=== PATIENT | female | born 1960 | race Caucasian/White ===

== ENCOUNTER 2021-03-24 15:52 | Observation (INO) ==
[2021-03-24] MEDS ORDERED: Naloxone 0.4 MG/ML INJ IVP PRN (21:54)
[2021-03-24] MEDS ORDERED: Melatonin 3 MG TABLET PO PRN (21:54)
[2021-03-24] MEDS ORDERED: Diphenoxylate/Atropine 1 TAB TABLET PO PRN (22:16)
[2021-03-24] MEDS ORDERED: Ondansetron ODT 4 MG TAB.RAPDIS SL PRN (22:16)
[2021-03-24] MEDS ORDERED: ALPRAZolam 0.5 MG TABLET PO PRN (22:16)
[2021-03-24] MEDS ORDERED: *HR* OxyCODONE/APAP 10/325 TABLET PO PRN (22:16)
[2021-03-24] MEDS: Pregabalin 50 MG CAPSULE PO SCH (23:33)
[2021-03-24] MEDS: Apixaban 2.5 MG TABLET PO SCH (23:33)
[2021-03-25 06:42] LABS: Hematocrit 28.6 % (35.3-44.9); Hemoglobin 8.6 g/dL (11.5-15.4); Mean Corpuscular HGB Conc 30.1 g/dL (31.6-35.5); Mean Corpuscular Hemoglobin 26.2 pg (28.0-33.3); Mean Corpuscular Volume 87.2 fL (83.0-100.0); Mean Platelet Volume 9.8 fL (9.4-12.4); Platelet Count 339 K/mcL (140-400); Red Blood Count 3.28 M/mcL (3.82-4.97); Red Cell Distribution Width 16.1 % (11.5-14.5); White Blood Count 5.1 K/mcL (4.3-11.1)
[2021-03-25 06:55] LABS: Calcium 8.6 mg/dL (8.6-10.3); Magnesium 1.9 mg/dL (1.6-2.6); Phosphorous 2.9 mg/dL (2.7-4.5); Potassium 4.1 mEq/L (3.5-5.1)
[2021-03-25 06:56] VITALS: BP 107/63; TEMP 98.2
[2021-03-25] MEDS ORDERED: VITAMIN B COMPLEX PO SCH (08:00)
[2021-03-25] MEDS: Apixaban 2.5 MG TABLET PO SCH (08:55)
[2021-03-25] MEDS: Pregabalin 50 MG CAPSULE PO SCH (08:56)
[2021-03-25] MEDS ORDERED: Aspirin 81 MG TAB.CHEW PO SCH (09:00)
[2021-03-25] MEDS ORDERED: Apixaban 2.5 MG TABLET PO SCH (09:00)
[2021-03-25] MEDS ORDERED: DEXAMETHASONE 2 MG PO SCH (09:00)
[2021-03-25] MEDS ORDERED: Lactobacillus 1 EACH CAP.SPRINK PO SCH (09:00)
[2021-03-25] MEDS ORDERED: FLUoxetine 20 MG CAPSULE PO SCH (09:00)
[2021-03-25] MEDS ORDERED: Cholecalciferol (D-3) 1,000 UNIT (25MCG) TABLET PO SCH (09:00)
[2021-03-25] MEDS ORDERED: UBIDECARENONE 10 MG PO SCH (09:00)
[2021-03-25] MEDS ORDERED: Pregabalin 50 MG CAPSULE PO SCH (09:00)
[2021-03-25 10:21] VITALS: PULSE 99; O2SAT 77
[2021-03-25] MEDS ORDERED: SOTORASIB 120 MG PO SCH (18:00)
== END 2021-03-25 14:35 | disposition home health service (06) ==
LOC: 3BNU → SUATTDRO 20:10
PROVIDERS: ADMIT Internal Medicine; ATTEND Internal Medicine